=== PATIENT | female | born 1985 | race Caucasian/White ===

== ENCOUNTER 2019-06-21 18:01 | Emergency (ER) | payer SELFPAY ==
[~2019-06-21] VITALS: Ht 167.6 cm; Wt 81.8 kg
[~2019-06-21 18:01] MED LIST: CLON1TAB PO; RISP1 PO; RISP3TAB44 PO; SERT100T12 PO; SUVO20TA PO; TOPI50TA PO
[2019-06-21 18:02] VITALS: BP 147/97
== END 2019-06-21 19:50 | disposition left against medical advice (07) ==
LOC: EMS 18:01
DX: R45.851 Suicidal ideations (principal); Z53.21 Procedure and treatment not carried out due to patient leaving prior to being seen by health care provider